=== PATIENT | male | born 1965 | race Two or more races ===

== ENCOUNTER 2018-06-19 20:09 | Inpatient (IN) | payer OTHER ==
[2018-06-19] MEDS ORDERED: MELATONIN 5 MG TABLETS PO PRN (22:00)
[2018-06-19] MEDS ORDERED: diazePAM 5 MG TABLET PO SCH (22:00)
[2018-06-19] MEDS ORDERED: METHADONE HCL 10 MG TABLET (FOR DETOX USE ONLY) PO ONE ×2 (23:00→23:42)
--- NOTE | 2018-06-19 23:09 | HP ---
"COWS - Scale Resting Pulse: 1= [place] 81-100 Sweatin= Beads of Sweat on Face Restless Observation: 1= Difficult to Sit Still Pupil Size: 1= Pupils >than Normal (Pupils = 4 mm) Bone or Joint Aches: 0= None Runny Nose/ Eye Tearin= Nasal Congestion GI Upset > 30mins: 2= Nausea/Diarrhea Tremor Observation: 2= Slight Tremor Visible Yawning Observation: 1= 1-2x During Session Anxiety or Irritability: 2=Irritable/Anxious Goose Flesh Skin: 0=Smooth Skin COWS Score: 14 CIWA Score Nausea/Vomitin-Mild Nausea/No Vomiting Muscle Tremors: 1-None Visible, but [place] Anxiety: 4-Mod. Anxious/Guarded Agitation: 4-Moderately Restless Paroxysmal Sweats: 2 (Increased facial moisture) Orientation: 0-Oriented Tacttile Disturbances: 0-None Auditory Disturbances: 0-None Visual Disturbances: 0-None Headache: 0-None Present CIWA-Ar Total Score: 12 - Admission Criteria OAS Guidelines: Admission for Medically Managed Detox: Requires at least one of the followin. CIWA greater than 12 2. Seizures within the past 24 hours 3. Delirium tremens within the past 24 hours 4. Hallucinations within the past 24 hours 5. Acute intervention needed for co occurring medical disorder 6. Acute intervention needed for co occurring psychiatric disorder 7. Severe withdrawal that cannot be handled at a lower level of care (continued vomiting, continued diarrhea, abnormal vital signs) requiring intravenous medication and/or fluids 8. Patient presents the following: CIWA greater than 12 Admission Criteria Met: Admission criteria met Admission ROS [facility] Chief Complaint: Here for heroin withdrawal symptoms. Allergies/Adverse Reactions: Allergies Allergy/AdvReac Type Severity Reaction Status Date / Time No Known Allergies Allergy Verified 06/19/18 22:37 History of Present Illness: Here for heroin detox. Uses Xanax mostly every day. Here years ago for detox. was d/c from [facility] Methadone program ([phone]) 2 days ago because had missed 7 days ago. has been using heroin even when on program. Heroin use since age 14. Cocaine use since age 14. Xanax use since age 14. Nicotine use since age 14. Denies alcohol use disorder. Longest length of sobriety 1 day. Overdose x 2 in 2018. Discussed obtaining a Narcan kit. Denies seizures. Hx blackouts. Search Terms: Manny Guo, 1965 Search Date: 06/19/2018 10:54:25 PM The Drug Utilization Report below displays all of the controlled substance prescriptions, if any, that your patient has filled in the last twelve months. The information displayed on this report is compiled from pharmacy submissions to the Department, and accurately reflects the information as submitted by the pharmacies. This report was requested by: Maria C Dangelo | Reference #: [id number] There are no results for the search terms that you entered. Exam Limitations: No Limitations - Ebola screening Have you traveled outside of the country in the last 21 days: No Have you had contact with anyone from an Ebola affected area: No Have you been sick,other than usual withdrawal symptoms: No Do you have a fever: No - Review of Systems Constitutional: Chills, Diaphoresis, Changes in sleep (Difficulty falling asleep ) EENT: reports: Blurred Vision ( Encouraged to f/u upon with eye doctor upon discharge.), Dental Problems (Missing and broken teeth. Denies pain. Chews and swallows ok. Encouraged to f/u upon with provider upon discharge.) Respiratory: reports: No Symptoms reported Cardiac: reports: No Symptoms Reported GI: reports: Diarrhea, Abdominal cramping, Other (States hx diverticulosis) : reports: No Symptoms Reported Musculoskeletal: reports: Back Pain Integumentary: reports: Other (Old healed cuts on hands from falling.) Neuro: reports: Numbness (In hands and feet thinks could be from cold or from withdrawal), Tremors Endocrine: reports: Excessive Sweating (From withdrawal), Increased Thirst Hematology: reports: No Symptoms Reported Psychiatric: reports: Judgement Intact, Orientated x3, Agitated, Anxious, Depressed (Denies thoughts of harming self or others.) Patient History - Patient Medical History Hx Asthma: No Hx Chronic Obstructive Pulmonary Disease (COPD): No (BUT USES 2 ASTHMA PUMPS, NOT SURE) Hx Cardiac Disorders: No Hx Hypertension: No Hx Hypercholesterolemia: No HX Cerebrovascular Accident: No Hx Seizures: No Hx Diabetes: No Hx Gastrointestinal Disorders: No Hx Genitourinary Disorders: No Hx Sexually Transmitted Disorders: No Hx Renal Disease (ESRD): No Hx Human Immunodeficiency Virus (HIV): No (NEGATIVE, LAST MONTH) Hx Depression: Yes (ON MEDS) Hx Suicide Attempt: No (DENIES) Hx Schizophrenia: No - Patient Surgical History Past Surgical History: Yes Other Surgical History: Colonscopy with polyps removed in 04/22 Anesthesia Reaction: No - PPD History Previous Implant?: Yes Documented Results: Negative w/proof Implanted On Prior [facility] Admission?: Yes Date: 07/23/12 PPD to be Administered?: Yes - Smoking Cessation Smoking history: Current every day smoker Have you smoked in the past 12 months: Yes Aproximately how many cigarettes per day: 20 Hx Chewing Tobacco Use: No Initiated information on smoking cessation: Yes 'Breaking Loose' booklet given: 06/19/18 - Substance & Tx. History Hx Alcohol Use: No Hx Substance Use: Yes Substance Use Type: Cocaine, Heroin, Tranquilizers (xANAX) Hx Substance Use Treatment: Yes - Substances Abused Heroin Route: SNIFF Frequency: Daily Amount used: 30 BAGS Age of first use: 14 Date of Last Use: 06/18/18 Cocaine Route: Smoking Frequency: Daily Amount used: 10 BAGS Age of first use: 14 Date of Last Use: 06/18/18 Alprazolam (Xanax) Route: Oral Frequency: Daily Amount used: 4/2MG Age of first use: 14 Date of Last Use: 06/18/18 Admission Physical Exam [facility] - Physical General Appearance: Yes: Moderate Distress, Tremorous (Slight tremors of hands) , Irritable, Sweating, Anxious HEENTM: Yes: EOMI, Hearing grossly Normal, Normocephalic, KEVYN (Pupils = 4 mm) Respiratory: Yes: Lungs Clear, Normal Breath Sounds, No Respiratory Distress Neck: Yes: No masses,lesions,Nodules, Supple Breast: Yes: Breast Exam Deferred Cardiology: Yes: Regular Rhythm, Murmur Abdominal: Yes: Non Tender, Flat, Soft, Increased Bowel Sounds Genitourinary: Yes: Within Normal Limits Back: Yes: Normal Inspection Musculoskeletal: Yes: full range of Motion, Gait Steady Extremities: Yes: Normal Capillary Refill, Tremors (Mild tremors when hands extended) Neurological: Yes: internet ecommerce specialist II-XII NML intact, Fully Oriented, Alert, Motor Strength 5/5 Integumentary: Yes: Normal Color, Warm, Diaphoresis, Rash (Papular lesions on face), Other (scattered healed cuts and bruising on hands, shins, and feet.) Lymphatic: Yes: Within Normal Limits - Diagnostic (1) Cardiac murmur Current Visit: Yes Status: Chronic (2) Opioid dependence with withdrawal Current Visit: Yes Status: Acute (3) Sedative, hypnotic or anxiolytic dependence with withdrawal, uncomplicated Current Visit: Yes Status: Acute (4) Nicotine dependence, uncomplicated Current Visit: Yes Status: Chronic Qualifiers: Nicotine product type: cigarettes Qualified Code(s): F17.210 - Nicotine dependence, cigarettes, uncomplicated (5) Bruise Current Visit: Yes Status: Chronic (6) Varicose vein of leg Current Visit: Yes Status: Chronic Qualifiers: Varicose vein complication: asymptomatic Laterality: bilateral Qualified Code(s): I83.93 - Asymptomatic varicose veins of bilateral lower extremities (7) Tinea pedis Current Visit: Yes Status: Chronic Qualifiers: Laterality: bilateral Qualified Code(s): B35.3 - Tinea pedis (8) Cocaine dependence, uncomplicated Current Visit: Yes Status: Chronic Cleared for Admission [facility] - Detox or Rehab [facility] Level of Care: Medically Managed Detox Regimen/Protocol: Methadone/Valium [facility] Breath Alcohol Content Breath Alcohol Content: 0 Urine Drug Screen - Results Drug Screen Negative: No Urine Drug Screen Results: PERLITA-Cocaine, OPI-Opiates, BZO-Benzodiazepines Inpatient Rehab Admission - Rehab Decision to Admit Inpatient rehab admission?: No"
[2018-06-19] MEDS ORDERED: P-EPHED 60MG/TRIPROLIDI 2.5MG TABLET PO PRN (23:42)
[2018-06-19] MEDS ORDERED: diazePAM 5 MG TABLET PO PRN (23:42)
[2018-06-19] MEDS ORDERED: MAGNESIUM CITRATE 300 ML BOTTLE PO PRN (23:42)
[2018-06-19] MEDS ORDERED: MAG HYDROX/AL HYDROX/SIMETH 30 ML UNIT-DOSE CUP PO PRN (23:42)
[2018-06-19] MEDS ORDERED: IBUPROFEN 400 MG TABLET (FP) PO PRN (23:42)
[2018-06-19] MEDS ORDERED: LOPERAMIDE HCL 2 MG CAPSULE PO PRN (23:42)
[2018-06-19] MEDS ORDERED: MAGNESIUM HYDROX 2400MG/30ML ORAL SUSPENSION 30 ML CUP PO PRN (23:42)
[2018-06-19] MEDS ORDERED: diazePAM 5 MG TABLET PO ONE (23:42)
[2018-06-19] MEDS ORDERED: MENTHOL/PHENOL 1 EACH UD MM PRN (23:42)
[2018-06-19] MEDS ORDERED: ACETAMINOPHEN 325 MG TABLET (FP) PO PRN (23:42)
[2018-06-20 00:02] VITALS: BMI 24.3
[2018-06-20] MEDS ORDERED: METHADONE HCL 10 MG TABLET (FOR DETOX USE ONLY) PO ONE ×3 (00:44→23:00)
[2018-06-20] MEDS ORDERED: diazePAM 5 MG TABLET PO ONE (00:44)
[2018-06-20] MEDS: diazePAM 5 MG TABLET PO SCH ×3 (05:18→22:39)
[2018-06-20] MEDS ORDERED: METHADONE HCL 10 MG TABLET (FOR DETOX USE ONLY) PO SCH (10:00)
[2018-06-20] MEDS: diazePAM 5 MG TABLET PO PRN (10:11)
[2018-06-20] MEDS: PRENATAL VITAMINS W/ FOLIC ACID TABLET (FP) PO SCH (10:11)
[2018-06-20 11:29] LABS: ALBUMIN 2.9 g/dl (3.4-5.0); ALK PHOS 90 U/L (45-117); ANION GAP 4 MMOL/L (8-16); BILIRUBIN,TOTAL 0.3 mg/dL (0.2-1); BLOOD UREA NITROGEN 17 mg/dL (7-18); CALCIUM 7.9 mg/dL (8.5-10.1); CHLORIDE 109 mmol/L (98-107); CO2 29 mmol/L (21-32); CREATININE 0.9 mg/dL (0.55-1.3); GLUCOSE,RANDOM 98 mg/dL (74-106); POTASSIUM 3.9 mmol/L (3.5-5.1); SGOT/AST 22 U/L (15-37); SGPT/ALT 40 U/L (13-61); SODIUM 142 mmol/L (136-145); TOT PROT 5.7 g/dl (6.4-8.2)
[2018-06-20 11:45] LABS: HEMOGLOBIN 12.6 GM/dL (11.7-16.9); MCH 30.8 pg (25.7-33.7); MEAN CELL VOLUME 90.6 fl (80-96); MEAN PLT VOLUME 8.5 fl (7.5-11.1); PLATELET COUNT 199 K/MM3 (134-434); RBC 4.08 M/mm3 (4.00-5.60); RDW 14.6 % (11.9-15.9); WHITE BLOOD COUNT 3.7 K/mm3 (4.0-10.0)
--- NOTE | 2018-06-20 14:44 | EKG ---
Test Reason : Blood Pressure : / mmHG Vent. Rate : 054 BPM Atrial Rate : 054 BPM P-R Int : 124 ms QRS Dur : 098 ms QT Int : 484 ms P-R-T Axes : 051 068 055 degrees QTc Int : 458 ms SINUS BRADYCARDIA MINIMAL VOLTAGE CRITERIA FOR LVH, MAY BE NORMAL VARIANT BORDERLINE ECG WHEN COMPARED WITH ECG OF 20-JUN-2018 00:29, NO SIGNIFICANT CHANGE WAS FOUND Confirmed by Rusty Navarrete MD ([id number]) on 06/20/2018 2:43:38 PM Referred By: KIKO MARROQUIN Confirmed By:Rusty Navarrete MD
--- NOTE | 2018-06-20 14:44 | EKG ---
Test Reason : Blood Pressure : / mmHG Vent. Rate : 061 BPM Atrial Rate : 061 BPM P-R Int : 118 ms QRS Dur : 094 ms QT Int : 444 ms P-R-T Axes : 063 073 057 degrees QTc Int : 446 ms Suspect unspecified pacemaker failure NORMAL SINUS RHYTHM MODERATE VOLTAGE CRITERIA FOR LVH, MAY BE NORMAL VARIANT BORDERLINE ECG NO PREVIOUS ECGS AVAILABLE Confirmed by Landon MAYORGA, Rusty ([id number]) on 06/20/2018 2:43:39 PM Referred By: KIKO MARROQUIN Confirmed By:Rusty Navarrete MD
--- NOTE | 2018-06-20 16:10 | PN ---
[facility] CIWA - CIWA Score Nausea/Vomitin-No Nausea/No Vomiting Muscle Tremors: 2 Anxiety: 4-Mod. Anxious/Guarded Agitation: 0-Normal Activity Paroxysmal Sweats: 3 Orientation: 0-Oriented Tacttile Disturbances: 2-Mild Itch/Numbness/Burn Auditory Disturbances: 0-None Visual Disturbances: 2-Mild Sensitivity Headache: 0-None Present CIWA-Ar Total Score: 13 BHS COWS - Scale Resting Pulse: 1= [place] 81-100 Sweatin= Chills/Flushing Restless Observation: 0= Sits Still Pupil Size: 0= Normal to Room Light Bone or Joint Aches: 2= Severe Diffuse Aches Runny Nose/ Eye Tearin= Nasal Congestion GI Upset > 30mins: 1= Stomach Cramp Tremor Observation of Outstretched Hands: 2= Slight Tremor Visible Yawning Observation: 1= 1-2x During Session Anxiety or Irritability: 2=Irritable/Anxious Goose Flesh Skin: 3=Piloe[place] COWS Score: 14 S Progress Note (SOAP) Subjective: Tremors, Body Aches, Anxious, Interrupted Sleep, Sweating. Objective: PATIENT A & O X 3, OBSERVED AMBULATING ON UNIT. IN NO ACUTE DISTRESS. 06/20/18 16:08 Vital Signs Temperature 99.1 F 06/20/18 13:36 Pulse Rate 91 H 06/20/18 13:36 Respiratory Rate 20 06/20/18 13:36 Blood Pressure 126/92 06/20/18 13:36 O2 Sat by Pulse Oximetry (%) Laboratory Tests 06/20/18 06/20/18 06/20/18 07:40 07:40 07:40 WBC 3.7 L RBC 4.08 Hgb 12.6 Hct 37.0 MCV 90.6 MCH 30.8 MCHC 34.0 RDW 14.6 D Plt Count 199 MPV 8.5 Sodium 142 Potassium 3.9 Chloride 109 H Carbon Dioxide 29 Anion Gap 4 L BUN 17 Creatinine 0.9 Creat Clearance w eGFR > 60 Random Glucose 98 Calcium 7.9 L Total Bilirubin 0.3 AST 22 ALT 40 Alkaline Phosphatase 90 Total Protein 5.7 L Albumin 2.9 L RPR Titer Nonreactive LABS NOTED. Assessment: 06/20/18 16:09 WITHDRAWAL SYMPTOMS. LEUKOPENIA. 06/20/18 16:09 Plan: CONTINUE DETOX. INCREASE DAILY PO FLUID INTAKE.
[2018-06-20] MEDS: THIAMINE HCL 100 MG TABLET (FP) PO SCH (22:39)
[2018-06-21] MEDS: diazePAM 5 MG TABLET PO SCH ×3 (05:18→22:13)
[2018-06-21] MEDS ORDERED: METHADONE HCL 5 MG TABLET (FOR DETOX USE ONLY) PO SCH (10:00)
[2018-06-21] MEDS ORDERED: diazePAM 5 MG TABLET PO SCH (10:00)
[2018-06-21] MEDS ORDERED: METHADONE HCL 10 MG TABLET (FOR DETOX USE ONLY) PO SCH (10:00)
[2018-06-21] MEDS: PRENATAL VITAMINS W/ FOLIC ACID TABLET (FP) PO SCH (10:11)
[2018-06-21] MEDS: diazePAM 5 MG TABLET PO PRN (10:12)
--- NOTE | 2018-06-21 11:16 | PN ---
[facility] CIWA - CIWA Score Nausea/Vomitin-No Nausea/No Vomiting Muscle Tremors: 3 Anxiety: 2 Agitation: 1-Slight > Activity Paroxysmal Sweats: 1-Minimal Palms Moist Orientation: 0-Oriented Tacttile Disturbances: 0-None Auditory Disturbances: 0-None Visual Disturbances: 0-None Headache: 1-Very Mild CIWA-Ar Total Score: 8 BHS COWS - Scale Resting Pulse: 0= [place] 80 or Below Sweatin= Chills/Flushing Restless Observation: 0= Sits Still Pupil Size: 0= Normal to Room Light Bone or Joint Aches: 2= Severe Diffuse Aches Runny Nose/ Eye Tearin= Nasal Congestion GI Upset > 30mins: 1= Stomach Cramp Tremor Observation of Outstretched Hands: 2= Slight Tremor Visible Yawning Observation: 1= 1-2x During Session Anxiety or Irritability: 2=Irritable/Anxious Goose Flesh Skin: 0=Smooth Skin COWS Score: 10 S Progress Note (SOAP) Subjective: penis foreskin blister pain "all over the place" ulcerative 1mm round well demarcated no bleeding clear discharge noted anxiety tremor body aches sweating Objective: 06/21/18 11:14 Vital Signs Temperature 96.1 F L 06/21/18 09:19 Pulse Rate 95 H 06/21/18 09:19 Respiratory Rate 16 06/21/18 09:19 Blood Pressure 123/75 06/21/18 09:19 O2 Sat by Pulse Oximetry (%) Laboratory Last Values WBC 3.7 K/mm3 (4.0-10.0) L 06/20/18 07:40 RBC 4.08 M/mm3 (4.00-5.60) 06/20/18 07:40 Hgb 12.6 GM/dL (11.7-16.9) 06/20/18 07:40 Hct 37.0 % (35.4-49) 06/20/18 07:40 MCV 90.6 fl (80-96) 06/20/18 07:40 MCH 30.8 pg (25.7-33.7) 06/20/18 07:40 MCHC 34.0 g/dl (32.0-35.9) 06/20/18 07:40 RDW 14.6 % (11.9-15.9) D 06/20/18 07:40 Plt Count 199 K/MM3 (134-434) 06/20/18 07:40 MPV 8.5 fl (7.5-11.1) 06/20/18 07:40 Sodium 142 mmol/L (136-145) 06/20/18 07:40 Potassium 3.9 mmol/L (3.5-5.1) 06/20/18 07:40 Chloride 109 mmol/L (98-107) H 06/20/18 07:40 Carbon Dioxide 29 mmol/L (21-32) 06/20/18 07:40 Anion Gap 4 MMOL/L (8-16) L 06/20/18 07:40 BUN 17 mg/dL (7-18) 06/20/18 07:40 Creatinine 0.9 mg/dL (0.55-1.3) 06/20/18 07:40 Creat Clearance w eGFR > 60 (>60) 06/20/18 07:40 Random Glucose 98 mg/dL (74-106) 06/20/18 07:40 Calcium 7.9 mg/dL (8.5-10.1) L 06/20/18 07:40 Total Bilirubin 0.3 mg/dL (0.2-1) 06/20/18 07:40 AST 22 U/L (15-37) 06/20/18 07:40 ALT 40 U/L (13-61) 06/20/18 07:40 Alkaline Phosphatase 90 U/L (45-117) 06/20/18 07:40 Total Protein 5.7 g/dl (6.4-8.2) L 06/20/18 07:40 Albumin 2.9 g/dl (3.4-5.0) L 06/20/18 07:40 RPR Titer Nonreactive (NONREACTIVE) 06/20/18 07:40 lab noted low Ca++ Assessment: 06/21/18 11:15 benzo and opiate withdrawal sx herpes II hypocalcemia Plan: continue detox oscal bid valtrex 500mg bid
[2018-06-21] MEDS: valACYclovir HCL 500 MG TABLET (FP) PO SCH ×2 (12:09→22:14)
[2018-06-21] MEDS ORDERED: COLLOIDAL OATMEAL 1 BAR EACH TP PRN (12:20)
[2018-06-21] MEDS: CALCIUM 250MG/VIT-D 125 UNITS 1 COMBO TABLET PO SCH ×2 (15:09→22:15)
[2018-06-21] MEDS: THIAMINE HCL 100 MG TABLET (FP) PO SCH (22:13)
[2018-06-22] MEDS: valACYclovir HCL 500 MG TABLET (FP) PO SCH ×2 (10:33→22:31)
[2018-06-22] MEDS: CALCIUM 250MG/VIT-D 125 UNITS 1 COMBO TABLET PO SCH ×2 (10:33→22:30)
[2018-06-22] MEDS: PRENATAL VITAMINS W/ FOLIC ACID TABLET (FP) PO SCH (10:33)
[2018-06-22] MEDS: diazePAM 5 MG TABLET PO SCH ×2 (10:33→22:31)
[2018-06-22] MEDS: METHADONE HCL 5 MG TABLET (FOR DETOX USE ONLY) PO SCH (10:33)
[2018-06-22] MEDS ORDERED: LIDOCAINE VISCOUS 2% ORAL/TOP 20 ML UNIT-DOSE CUP MM PRN (13:00)
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
[2018-06-22] MEDS ORDERED: cloNIDine HCL 0.1 MG TABLET PO ONE (20:13)
[2018-06-22] MEDS: THIAMINE HCL 100 MG TABLET (FP) PO SCH (22:30)
[2018-06-22] MEDS: CYCLOBENZAPRINE HCL 5 MG TABLET PO SCH (22:31)
[2018-06-23] MEDS: CYCLOBENZAPRINE HCL 5 MG TABLET PO SCH ×3 (05:45→22:17)
[2018-06-23] MEDS ORDERED: diazePAM 5 MG TABLET PO SCH (10:00)
[2018-06-23] MEDS ORDERED: METHADONE HCL 10 MG TABLET (FOR DETOX USE ONLY) PO SCH (10:00)
[2018-06-23] MEDS: valACYclovir HCL 500 MG TABLET (FP) PO SCH ×2 (10:09→22:18)
[2018-06-23] MEDS: diazePAM 5 MG TABLET PO SCH ×2 (10:09→22:18)
[2018-06-23] MEDS: PRENATAL VITAMINS W/ FOLIC ACID TABLET (FP) PO SCH (10:09)
[2018-06-23] MEDS: CALCIUM 250MG/VIT-D 125 UNITS 1 COMBO TABLET PO SCH ×2 (10:09→22:17)
[2018-06-23] MEDS: METHADONE HCL 5 MG TABLET (FOR DETOX USE ONLY) PO SCH (10:54)
--- NOTE | 2018-06-23 11:31 | PN ---
[facility] CIWA - CIWA Score Nausea/Vomitin-No Nausea/No Vomiting Muscle Tremors: 1-None Visible, but [place] Anxiety: 1-Mildly Anxious Agitation: 1-Slight > Activity Paroxysmal Sweats: 1-Minimal Palms Moist Orientation: 1-Uncertain about Date Tacttile Disturbances: 1-Very Mild Itch/Numbness Auditory Disturbances: 0-None Visual Disturbances: 0-None Headache: 0-None Present CIWA-Ar Total Score: 6 BHS COWS - Scale Resting Pulse: 0= [place] 80 or Below Sweatin= Chills/Flushing Restless Observation: 0= Sits Still Pupil Size: 0= Normal to Room Light Bone or Joint Aches: 1= Mild Discomfort Runny Nose/ Eye Tearin= Nasal Congestion GI Upset > 30mins: 1= Stomach Cramp Tremor Observation of Outstretched Hands: 1= Tremor [place], Not Seen Yawning Observation: 0= None Anxiety or Irritability: 1=Feels Anxious/Irritable Goose Flesh Skin: 0=Smooth Skin COWS Score: 6 S Progress Note (SOAP) Subjective: feeling better less tremor mild sweating little body aches reported in methadone program taking 60 mg daily last dose 06/15/18 patient is doing well to the opiate detox regimen continue methadone detox regimen Objective: 06/23/18 11:38 Vital Signs Temperature 97.8 F 06/23/18 09:08 Pulse Rate 74 06/23/18 09:08 Respiratory Rate 16 06/23/18 09:08 Blood Pressure 113/77 06/23/18 09:08 O2 Sat by Pulse Oximetry (%) Laboratory Last Values WBC 3.7 K/mm3 (4.0-10.0) L 06/20/18 07:40 RBC 4.08 M/mm3 (4.00-5.60) 06/20/18 07:40 Hgb 12.6 GM/dL (11.7-16.9) 06/20/18 07:40 Hct 37.0 % (35.4-49) 06/20/18 07:40 MCV 90.6 fl (80-96) 06/20/18 07:40 MCH 30.8 pg (25.7-33.7) 06/20/18 07:40 MCHC 34.0 g/dl (32.0-35.9) 06/20/18 07:40 RDW 14.6 % (11.9-15.9) D 06/20/18 07:40 Plt Count 199 K/MM3 (134-434) 06/20/18 07:40 MPV 8.5 fl (7.5-11.1) 06/20/18 07:40 Sodium 142 mmol/L (136-145) 06/20/18 07:40 Potassium 3.9 mmol/L (3.5-5.1) 06/20/18 07:40 Chloride 109 mmol/L (98-107) H 06/20/18 07:40 Carbon Dioxide 29 mmol/L (21-32) 06/20/18 07:40 Anion Gap 4 MMOL/L (8-16) L 06/20/18 07:40 BUN 17 mg/dL (7-18) 06/20/18 07:40 Creatinine 0.9 mg/dL (0.55-1.3) 06/20/18 07:40 Creat Clearance w eGFR > 60 (>60) 06/20/18 07:40 Random Glucose 98 mg/dL (74-106) 06/20/18 07:40 Calcium 7.9 mg/dL (8.5-10.1) L 06/20/18 07:40 Total Bilirubin 0.3 mg/dL (0.2-1) 06/20/18 07:40 AST 22 U/L (15-37) 06/20/18 07:40 ALT 40 U/L (13-61) 06/20/18 07:40 Alkaline Phosphatase 90 U/L (45-117) 06/20/18 07:40 Total Protein 5.7 g/dl (6.4-8.2) L 06/20/18 07:40 Albumin 2.9 g/dl (3.4-5.0) L 06/20/18 07:40 RPR Titer Nonreactive (NONREACTIVE) 06/20/18 07:40 lab noted continue oscal Assessment: 06/23/18 11:39 withdrawal sx Plan: continue detox encourage the patient return to methadone program with alternative of suboxone maintenance treatment program
[2018-06-23] MEDS: THIAMINE HCL 100 MG TABLET (FP) PO SCH (22:17)
[2018-06-23] MEDS: hydrOXYzine PAMOATE 25 MG CAPSULE (FP) PO PRN (22:19)
[2018-06-24] MEDS: CYCLOBENZAPRINE HCL 5 MG TABLET PO SCH ×3 (05:40→22:24)
[2018-06-24] MEDS: hydrOXYzine PAMOATE 25 MG CAPSULE (FP) PO PRN ×2 (05:40→22:24)
[2018-06-24] MEDS ORDERED: METHADONE HCL 5 MG TABLET (FOR DETOX USE ONLY) PO SCH (06:00)
[2018-06-24] MEDS ORDERED: diazePAM 5 MG TABLET PO SCH (10:00)
[2018-06-24] MEDS ORDERED: METHADONE HCL 10 MG TABLET (FOR DETOX USE ONLY) PO SCH (10:00)
[2018-06-24] MEDS: PRENATAL VITAMINS W/ FOLIC ACID TABLET (FP) PO SCH (10:46)
[2018-06-24] MEDS: CALCIUM 250MG/VIT-D 125 UNITS 1 COMBO TABLET PO SCH ×2 (10:46→22:25)
[2018-06-24] MEDS: valACYclovir HCL 500 MG TABLET (FP) PO SCH ×2 (10:46→22:24)
--- NOTE | 2018-06-24 13:13 | PN ---
BHS COWS - Scale Resting Pulse: 0= [place] 80 or Below Sweatin= Chills/Flushing Restless Observation: 0= Sits Still Pupil Size: 0= Normal to Room Light Bone or Joint Aches: 1= Mild Discomfort Runny Nose/ Eye Tearin= Nasal Congestion GI Upset > 30mins: 1= Stomach Cramp Tremor Observation of Outstretched Hands: 0= None Yawning Observation: 1= 1-2x During Session Anxiety or Irritability: 1=Feels Anxious/Irritable Goose Flesh Skin: 0=Smooth Skin COWS Score: 6 BHS Progress Note (SOAP) Subjective: feeling better mild body aches less tremor sleep better at night Objective: 06/24/18 13:14 Vital Signs Temperature 97.4 F L 06/24/18 09:09 Pulse Rate 81 06/24/18 09:09 Respiratory Rate 18 06/24/18 09:09 Blood Pressure 130/74 06/24/18 09:09 O2 Sat by Pulse Oximetry (%) Laboratory Tests Laboratory Last Values WBC 3.7 K/mm3 (4.0-10.0) L 06/20/18 07:40 RBC 4.08 M/mm3 (4.00-5.60) 06/20/18 07:40 Hgb 12.6 GM/dL (11.7-16.9) 06/20/18 07:40 Hct 37.0 % (35.4-49) 06/20/18 07:40 MCV 90.6 fl (80-96) 06/20/18 07:40 MCH 30.8 pg (25.7-33.7) 06/20/18 07:40 MCHC 34.0 g/dl (32.0-35.9) 06/20/18 07:40 RDW 14.6 % (11.9-15.9) D 06/20/18 07:40 Plt Count 199 K/MM3 (134-434) 06/20/18 07:40 MPV 8.5 fl (7.5-11.1) 06/20/18 07:40 Sodium 142 mmol/L (136-145) 06/20/18 07:40 Potassium 3.9 mmol/L (3.5-5.1) 06/20/18 07:40 Chloride 109 mmol/L (98-107) H 06/20/18 07:40 Carbon Dioxide 29 mmol/L (21-32) 06/20/18 07:40 Anion Gap 4 MMOL/L (8-16) L 06/20/18 07:40 BUN 17 mg/dL (7-18) 06/20/18 07:40 Creatinine 0.9 mg/dL (0.55-1.3) 06/20/18 07:40 Creat Clearance w eGFR > 60 (>60) 06/20/18 07:40 Random Glucose 98 mg/dL (74-106) 06/20/18 07:40 Calcium 7.9 mg/dL (8.5-10.1) L 06/20/18 07:40 Total Bilirubin 0.3 mg/dL (0.2-1) 06/20/18 07:40 AST 22 U/L (15-37) 06/20/18 07:40 ALT 40 U/L (13-61) 06/20/18 07:40 Alkaline Phosphatase 90 U/L (45-117) 06/20/18 07:40 Total Protein 5.7 g/dl (6.4-8.2) L 06/20/18 07:40 Albumin 2.9 g/dl (3.4-5.0) L 06/20/18 07:40 RPR Titer Nonreactive (NONREACTIVE) 06/20/18 07:40 lab noted Assessment: 06/24/18 13:15 mild withdrawal sx Plan: continue detox
[2018-06-24] MEDS: THIAMINE HCL 100 MG TABLET (FP) PO SCH (22:24)
[2018-06-25] MEDS: CYCLOBENZAPRINE HCL 5 MG TABLET PO SCH (05:32)
[2018-06-25] MEDS ORDERED: METHADONE HCL 5 MG TABLET (FOR DETOX USE ONLY) PO SCH (06:00)
[2018-06-25 06:15] VITALS: BP 99/60; PULSE 60; TEMP 97.6
[2018-06-25] MEDS: valACYclovir HCL 500 MG TABLET (FP) PO SCH (10:15)
[2018-06-25] MEDS: PRENATAL VITAMINS W/ FOLIC ACID TABLET (FP) PO SCH (10:15)
[2018-06-25] MEDS: CALCIUM 250MG/VIT-D 125 UNITS 1 COMBO TABLET PO SCH (10:15)
--- NOTE | 2018-06-25 15:00 | DS ---
[facility] Detox Discharge Summary Admission Date: 06/19/18 Discharge Date: 06/25/18 - History Present History: Opioid Dependence, Sedative Dependence Additional Comments: 52 years old male admitted on 06/19/18 for benzo and opiate withdrawal stabilization completed detox regimen after[facility] - Physical Exam Results Vital Signs: Vital Signs Temperature 97.6 F 06/25/18 06:14 Pulse Rate 60 06/25/18 06:14 Respiratory Rate 18 06/25/18 06:14 Blood Pressure 99/60 06/25/18 06:14 O2 Sat by Pulse Oximetry (%) Pertinent Admission Physical Exam Findings: alcohol withdrawal sx Laboratory Last Values WBC 3.7 K/mm3 (4.0-10.0) L 06/20/18 07:40 RBC 4.08 M/mm3 (4.00-5.60) 06/20/18 07:40 Hgb 12.6 GM/dL (11.7-16.9) 06/20/18 07:40 Hct 37.0 % (35.4-49) 06/20/18 07:40 MCV 90.6 fl (80-96) 06/20/18 07:40 MCH 30.8 pg (25.7-33.7) 06/20/18 07:40 MCHC 34.0 g/dl (32.0-35.9) 06/20/18 07:40 RDW 14.6 % (11.9-15.9) D 06/20/18 07:40 Plt Count 199 K/MM3 (134-434) 06/20/18 07:40 MPV 8.5 fl (7.5-11.1) 06/20/18 07:40 Sodium 142 mmol/L (136-145) 06/20/18 07:40 Potassium 3.9 mmol/L (3.5-5.1) 06/20/18 07:40 Chloride 109 mmol/L (98-107) H 06/20/18 07:40 Carbon Dioxide 29 mmol/L (21-32) 06/20/18 07:40 Anion Gap 4 MMOL/L (8-16) L 06/20/18 07:40 BUN 17 mg/dL (7-18) 06/20/18 07:40 Creatinine 0.9 mg/dL (0.55-1.3) 06/20/18 07:40 Creat Clearance w eGFR > 60 (>60) 06/20/18 07:40 Random Glucose 98 mg/dL (74-106) 06/20/18 07:40 Calcium 7.9 mg/dL (8.5-10.1) L 06/20/18 07:40 Total Bilirubin 0.3 mg/dL (0.2-1) 06/20/18 07:40 AST 22 U/L (15-37) 06/20/18 07:40 ALT 40 U/L (13-61) 06/20/18 07:40 Alkaline Phosphatase 90 U/L (45-117) 06/20/18 07:40 Total Protein 5.7 g/dl (6.4-8.2) L 06/20/18 07:40 Albumin 2.9 g/dl (3.4-5.0) L 06/20/18 07:40 RPR Titer Nonreactive (NONREACTIVE) 06/20/18 07:40 lab noted - Treatment Hospital Course: Detox Protocol Followed, Detoxed Safely, Responded well, Discharged Condition Good, Rehab Referral Accepted Patient has Accepted a Rehab Referral to: [facility] - Medication Discharge Medications: Ambulatory Orders Naloxone HCl [Narcan] 4 mg NS ASDIR PRN #1 spray 06/23/18 - Diagnosis (1) Asthma Status: Acute (2) Opioid dependence with withdrawal Status: Acute (3) Sedative, hypnotic or anxiolytic dependence with withdrawal, uncomplicated Status: Acute (4) Nicotine dependence, uncomplicated Status: Acute Qualifiers: Nicotine product type: cigarettes Qualified Code(s): F17.210 - Nicotine dependence, cigarettes, uncomplicated - AMA Did Patient Leave Against Medical Advice: No
== END 2018-06-25 12:02 | disposition home or self-care (01) | DRG 773 ==
LOC: YASAS 20:09 → Y3N 23:36
PROVIDERS: ADMIT Surgery; ATTEND Surgery
PROC: HZ2ZZZZ Detoxification Services for Substance Abuse Treatment (ICD-10-PCS; principal; 2018-06-19)
DX: F11.23 Opioid dependence with withdrawal (principal); F13.230 Sedative, hypnotic or anxiolytic dependence with withdrawal, uncomplicated; F14.20 Cocaine dependence, uncomplicated; F17.210 Nicotine dependence, cigarettes, uncomplicated; K08.9 Disorder of teeth and supporting structures, unspecified; E83.51 Hypocalcemia; B00.9 Herpesviral infection, unspecified; D72.819 Decreased white blood cell count, unspecified; R01.1 Cardiac murmur, unspecified; I83.93 Asymptomatic varicose veins of bilateral lower extremities; B35.3 Tinea pedis; Z59.0 Homelessness
CPT/HCPCS: 36415; 80053; 85027; 86593; 93005; 93010

== ENCOUNTER 2022-05-15 19:46 | Inpatient (IN) | payer OTHER ==
[2022-05-15 20:23] VITALS: BMI 22.1
[2022-05-15] MEDS ORDERED: BISMUTH SUBSALICYLATE 524 MG/30 ML PO PRN (20:47)
[2022-05-15] MEDS ORDERED: POLYETHYLENE GLYCOL (HEALTHYLAX) 3350 17 GM PACKET PO PRN (20:47)
[2022-05-15] MEDS ORDERED: P-EPHED 60MG/TRIPROLIDI 2.5MG TABLET PO PRN (20:47)
[2022-05-15] MEDS ORDERED: ACETAMINOPHEN 325 MG TABLET (FP) PO PRN (20:47)
[2022-05-15] MEDS ORDERED: guaiFENesin 200 MG/10 ML 10 ML UNIT-DOSE CUPS PO PRN (20:47)
[2022-05-15] MEDS ORDERED: MAG HYDROX/AL HYDROX/SIMETH 30 ML UNIT-DOSE CUP PO PRN (20:47)
[2022-05-15] MEDS ORDERED: ONDANSETRON *ODT* 4 MG TABLET SL PRN (20:47)
[2022-05-15] MEDS ORDERED: NALOXONE HCL (KLOXXADO) 8 MG SPRAY NS PRN (20:47)
[2022-05-15] MEDS ORDERED: NALOXONE HCL 0.4 MG/ML VIAL IM PRN (20:47)
[2022-05-15] MEDS ORDERED: BENZOCAINE/MENTHOL (CHLORASEPTIC ) LOZENGE MM PRN (20:47)
[2022-05-15] MEDS ORDERED: DICYCLOMINE HCL 10 MG CAPSULE PO PRN (20:47)
[2022-05-15] MEDS ORDERED: IBUPROFEN 400 MG TABLET (FP) PO PRN (20:47)
[2022-05-15] MEDS ORDERED: MAGNESIUM HYDROX 2400MG/30ML ORAL SUSPENSION 30 ML CUP PO PRN (20:47)
[2022-05-15] MEDS ORDERED: METHOCARBAMOL 500 MG TABLET PO PRN (20:47)
[2022-05-15] MEDS ORDERED: LOPERAMIDE HCL 2 MG CAPSULE PO PRN (20:47)
[2022-05-15] MEDS ORDERED: cloNIDine HCL 0.1 MG TABLET PO PRN (20:49)
[2022-05-15] MEDS: THIAMINE HCL 100 MG TABLET (FP) PO SCH (23:58)
[2022-05-16] MEDS: IBUPROFEN 600 MG TABLET (FP) PO PRN ×2 (05:47→18:36)
[2022-05-16] MEDS ORDERED: methaDONE HCL 10 MG TABLET (FOR DETOX USE ONLY) PO ONE (10:00)
[2022-05-16] MEDS: BACITRACIN 0.9 GM PACKET TP SCH ×3 (10:28→23:20)
[2022-05-16] MEDS: PRENATAL VITAMINS W/ FOLIC ACID TABLET (FP) PO SCH (10:28)
[2022-05-16] MEDS: hydrOXYzine PAMOATE 25 MG CAPSULE (FP) PO PRN ×2 (10:31→18:36)
[2022-05-16 11:05] LABS: HEMATOCRIT 35.8 % (35.4-49); MCH 29.7 pg (25.7-33.7); MCHC 33.7 g/dl (32.0-35.9); MEAN CELL VOLUME 88.2 fl (80-96); PLATELET COUNT 295 10^3/uL (134-434); RBC 4.06 M/mm3 (4.00-5.60); RDW 14.9 % (11.9-15.9); WHITE BLOOD COUNT 5.2 K/mm3 (4.0-10.0)
[2022-05-16 11:39] LABS: BLOOD UREA NITROGEN 19.6 mg/dL (7-18); CALCIUM 8.5 mg/dL (8.5-10.1)
[2022-05-16 11:43] LABS: BILIRUBIN,TOTAL 0.4 mg/dL (0.2-1); TOT PROT 6.3 g/dl (6.4-8.2)
[2022-05-16] MEDS: THIAMINE HCL 100 MG TABLET (FP) PO SCH (23:20)
[2022-05-17] MEDS: ACETAMINOPHEN 325 MG TABLET (FP) PO PRN ×2 (07:09→22:39)
[2022-05-17] MEDS: hydrOXYzine PAMOATE 25 MG CAPSULE (FP) PO PRN ×2 (07:09→22:39)
[2022-05-17] MEDS: PRENATAL VITAMINS W/ FOLIC ACID TABLET (FP) PO SCH (10:01)
[2022-05-17] MEDS: BACITRACIN 0.9 GM PACKET TP SCH ×2 (10:04→22:36)
[2022-05-17] MEDS: IBUPROFEN 600 MG TABLET (FP) PO PRN (13:13)
[2022-05-17] MEDS: THIAMINE HCL 100 MG TABLET (FP) PO SCH (22:37)
[2022-05-17] MEDS: MELATONIN 5 MG TABLETS PO PRN (22:39)
[2022-05-18] MEDS: IBUPROFEN 600 MG TABLET (FP) PO PRN (06:04)
[2022-05-18] MEDS: hydrOXYzine PAMOATE 25 MG CAPSULE (FP) PO PRN ×2 (06:05→21:02)
[2022-05-18] MEDS ORDERED: methaDONE HCL 10 MG TABLET (FOR DETOX USE ONLY) PO ONE (10:00)
[2022-05-18] MEDS: PRENATAL VITAMINS W/ FOLIC ACID TABLET (FP) PO SCH (10:10)
[2022-05-18] MEDS: BACITRACIN 0.9 GM PACKET TP SCH ×2 (10:11→21:03)
[2022-05-18] MEDS: ACETAMINOPHEN 325 MG TABLET (FP) PO PRN (10:14)
[2022-05-18] MEDS: MELATONIN 5 MG TABLETS PO PRN (21:02)
[2022-05-18] MEDS: THIAMINE HCL 100 MG TABLET (FP) PO SCH (21:03)
[2022-05-19] MEDS: IBUPROFEN 600 MG TABLET (FP) PO PRN (06:11)
[2022-05-19 06:59] VITALS: RESP 18
[2022-05-19 09:32] VITALS: BP 132/87; PULSE 80; TEMP 97.5
[2022-05-19] MEDS: BACITRACIN 0.9 GM PACKET TP SCH (10:05)
[2022-05-19] MEDS: PRENATAL VITAMINS W/ FOLIC ACID TABLET (FP) PO SCH (10:05)
== END 2022-05-19 11:57 | disposition home or self-care (01) | DRG 773 ==
LOC: YASAS 19:46 → Y3N 22:03
PROVIDERS: ADMIT Allergy & Immunology; ATTEND Surgery
PROC: HZ2ZZZZ Detoxification Services for Substance Abuse Treatment (ICD-10-PCS; principal; 2022-05-16)
DX: F11.23 Opioid dependence with withdrawal (principal); F14.20 Cocaine dependence, uncomplicated; F17.210 Nicotine dependence, cigarettes, uncomplicated; J45.909 Unspecified asthma, uncomplicated; Z99.89 Dependence on other enabling machines and devices; S01.81XD Laceration without foreign body of other part of head, subsequent encounter; X99.1XXD Assault by knife, subsequent encounter
CPT/HCPCS: 36415; 80053; 85027; 86780; 87811; C9803-CS; U0003; U0005